=== PATIENT | male | born 1950 | race Caucasian/White ===

== ENCOUNTER 2016-12-11 07:00 | Inpatient (IN) | payer OTHER ==
[~2016-12-11] VITALS: Ht 195.6 cm; Wt 129.8 kg
[~2016-12-11 07:00] MED LIST: ATORVASTATIN CA40 M1 PO; BENAZEPRIL HCL20 MG PO; FLOMAX0.4 M1 PO; LO-DOSE ASPIRIN81 MG PO; VITAMIN B-121000 MC3 PO
[2016-12-15] MEDS ORDERED: TYLENOL EXTRA500 M2 PO (11:47)
--- NOTE | 2016-12-15 11:49 | Patient Discharge Instructions ---
Discharge Instructions General Discharge Information You were seen/treated for: carotid stenosis You had these procedures: carotid endarterectomy Watch for these problems: temp>101, increased redness or drainage of wound, increased weakness or slurring of speech. No bath, but you may shower: Yes Other wound care: Keep incision clean and dry Diet Continue normal diet: Yes Activity Activity Self Limited: Yes Acute Coronary Syndrome Inclusion Criteria At DC or during hospital stay patient has or had the following: Discharge Core Measures Meds if any: Prescribed or Continued at Discharge Meds if any: NOT Prescribed or Continued at Discharge Congestive Heart Failure Inclusion Criteria At DC or during hospital stay patient has or had the following: Discharge Core Measures Meds if any: Prescribed or Continued at Discharge Meds if any: NOT Prescribed or Continued at Discharge Cerebrovascular accident Inclusion Criteria At DC or during hospital stay patient has or had the following: Discharge Core Measures Meds if any: Prescribed or Continued at Discharge Meds if any: NOT Prescribed or Continued at Discharge Venous thromboembolism Discharge Core Measures - Per Current guidelines, there needs to be overlap - treatment for the first 5 days of Warfarin therapy. - If discharged on Warfarin prior to 5 days of - overlap therapy, the patient will need to be - assessed for post discharge needs including - *Post discharge parental anticoagulation - *Warfarin and/or parental anticoagulation education - *Follow up date to check INR post discharge Meds if any: Prescribed or Continued at Discharge Note: Overlap Therapy is Warfarin and Anticoagulant Meds if any: NOT Prescribed or Continued at Discharge
--- NOTE | 2016-12-15 11:54 | Surg Short-stay <48hrs Dis Sum ---
Visit Information Visit Dates Admission Date: 12/15/16 Discharge Date: 12/16/2016 Surgical Short Stay DC Summary Admission Diagnosis: Carotid stenosis Final Diagnosis: same, s/p R CEA Procedure(s): R CEA - see operative report Summary/Significant Findings: Pt underwent a right CEA on 12/15 and was brought to the PACU in stable condition. Overnight he remained stable. He was awake and alert. He was noted to have a very slight weakness on the right side of his face with smiling. His tongue did not deviate. He had no decreased sensation anywhere and other than that he was without any neurologic deficits. His pain was well controlled. He was able to be discharged home. Condition at Discharge: good Discharge Disposition: home or self care Discharge instructions provided to patient/family: Yes Post discharge follow-up plan: One week, call Dr Farrell for an appt
--- NOTE | 2016-12-15 12:02 | Admission Core Measures ---
Admission Meds I reviewed the following Meds: Current Medications Sig/Ortiz Start time Last Medication Dose Stop Time Status Admin Aspirin Buffered 81 MG DAILY 12/15 1141 AC (Ecotrin) Atorvastatin Calcium 40 MG 1700 12/16 1700 AC (Lipitor) Lisinopril 20 MG DAILY 12/16 1000 AC (Prinivil) Tamsulosin HCl 0.4 MG DAILY 12/16 1000 AC (Flomax) Acute Coronary Syndrome Inclusion Criteria ACS Diagnosis No Inpatient Core Measures LDL Reminder: If No, please order W/I first 24hr of stay Congestive Heart Failure Inclusion Criteria CHF Diagnosis No Cerebrovascular accident Inclusion Criteria CVA/TIA Diagnosis No Inpatient Core Measures Bedside Swallow Eval Reminder: If BSE failed, place ST order Antithrombotic Reminder: Order Antithrombotic Medication by end of day 2 Antithrombotic Reminder: Document Reason Antithrombotic Not ordered by end of day 2 AFIB/Flutter Reminder: If Present, add to problem list AFIB/Flutter Reminder: Order Anticoag Medication for pts with AFIB/Flutter Atherosclerosis Reminder: If Present, add to problem list LDL Reminder: If No, please order W/I first 24hr of stay PT Order Reminder: If No, please order Venous thromboembolism Inpatient Core Measures VTE Risk Factors: Age > 40, Surgery No [facility] VTE prophylaxis d/t No contraindications No VTE Pharm Prophylaxis d/t No contraindications Inclusion Criteria - Per Current guidelines, there needs to be overlap - treatment for the first 5 days of Warfarin therapy. - Parenteral Anticoagulation (IV or SC) needs to be - given along with Warfarin therapy. VTE Diagnosis No VTE Type NONE VTE Confirmed by (Test) NONE Problem List As ranked by this Provider includes Assessment & Plan 1. S/P carotid endarterectomy HOME MEDS Home Med List Acetaminophen (Tylenol Extra Strength) 500 MG TABLET 1-2 TAB PO Q6 PRN PAIN Aspirin (Lo-Dose Aspirin EC) 81 MG TABLET.DR 1 TAB PO DAILY BLOOD THINNER ( Reported) Atorvastatin Calcium 40 MG TABLET 1 TAB PO DAILY CHLESTEROL (Reported) Benazepril HCl 20 MG TABLET 1 TAB PO DAILY BLOOD PRESSURE (Reported) Cyanocobalamin (Vitamin B-12) 1,000 MCG TABLET 1 TAB PO DAILY SUPPLEMENT ( Reported) Tamsulosin HCl (Flomax) 0.4 MG CAP.ER.24H 1 TAB PO DAILY URINE FLOW (Reported )
[2016-12-15 12:40] VITALS: BP 118/72
--- NOTE | 2016-12-15 13:56 | PN- Vascular Surgery ---
Subjective Subjective: POST-OP NOTE: Reports expected neck soreness. Tolerating clears. No nausea. No dizziness. No shortness of breath. No chest pains. Voided already without difficulty. Objective Vital Signs and I&Os Vital Signs Date Time Temp Pulse Resp B/P B/P Pulse O2 O2 Flow FiO2 Mean Ox Delivery Rate 12/15 1240 97.2 62 16 118/72 99 Nasal 4.0L Cannula 12/15 1240 99 Nasal 4.0L Cannula Intake & Output 12/15 1600 12/15 0800 12/15 0000 12/14 1600 12/14 0800 12/14 0000 Intake Total Output Total Balance Patient 286 lb Weight Weight Bed scale Measurement Method Physical Exam: General - alert & oriented x 3. comfortable. no acute distress. Face - some dysymmetry noted with smiling. no tongue deviation. otherwise symmetrical. Neck - right neck dressing c/d/i. some swelling but no hematoma appreciated. no drains. Lungs - clear bilaterally. no w/r/r. Cardiac - s1s2. reg. Abdomen - soft. nontender. Extremities - warm bilaterally. no c/c/e. calves soft and nontender b/l. Neuro - no focal deficits. strength grossly equal throughout. Current Medications: Current Medications Sig/Ortiz Start time Last Medication Dose Route Stop Time Status Admin Acetaminophen 650 MG Q6P PRN 12/15 1330 AC PO Aspirin Buffered 81 MG DAILY 12/16 1000 AC PO Aspirin Buffered 81 MG DAILY 12/15 1141 DC PO Atorvastatin Calcium 40 MG 1700 12/16 1700 DC PO Atorvastatin Calcium 40 MG 1700 12/16 1700 AC PO Dextrose/Sodium 1,000 ML .[id number] 12/15 1330 AC Chloride IV Lisinopril 20 MG DAILY 12/16 1000 DC PO Lisinopril 20 MG DAILY 12/16 1000 AC PO Ondansetron HCl 4 MG Q6P PRN 12/15 1330 AC IV Oxycodone/ 1 TAB Q4P PRN 12/15 1330 AC Acetaminophen PO Tamsulosin HCl 0.4 MG DAILY 12/16 1000 DC PO Tamsulosin HCl 0.4 MG DAILY 12/16 1000 AC PO Assessment/Plan Assessment/Plan This 66 year old male with hx htn, hld, bph, is POD#0 s/p right carotid endarterectomy, with mild dysymmetry smiling - 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 No Antibiotics Is Patient on Antibiotics? No
--- NOTE | 2016-12-15 15:58 | Operative Report ---
Operative/Inv Procedure Report Surgery Date: 12/15/16 Name of Procedure: Right carotid thromboendarterectomy with bovine patch angioplasty Pre-Operative Diagnosis: Right carotid high-grade stenosis Post-Operative Diagnosis: Same Estimated Blood Loss: less than 50ml Surgeon/Government Affairs Director: HERIBERTO GARCIA,SEBASTIÁN MARTINEZ MD, MERI (Asst.) Anesthesia: local monitored anesthesi, block Implants: Bovine pericardial patch Complications: None Condition: Stable to PACU Operative Indication: 66-year-old male with a history of asymptomatic high-grade right-sided carotid artery stenosis. Risk benefits and alternatives were explained to the patient including stroke, nerve injury, thrombosis and . He decided to proceed with intervention. Operative/Procedure Note Note: Patient brought to operating room and placed on the table supine. Time out held in accordance with [facility] policy. Of note- due to the patient's size and complexity of the case the second surgeon was required due to the lack of a qualified resident. Incision made over the anterior border of the sternocleidomastoid with a 15 blade. Sharp dissection carried down through the skin and subcutaneous tissue to the level of the carotid sheath. Arteries dissected free proximally and distally. The internal carotid artery, external carotid artery and common carotid artery were all circumferentially controlled. The patient required 40 cc of lidocaine in addition to his cervical block for analgesia. Occluding clamps were then placed and the patient was monitored during this period. No deficits were noted. The artery was then opened and the patient bolused with 6000 units of heparin. An 11 blade was used and a Shi scissors to extend the arteriotomy. A high-grade stenosis was noted 1 cm from the bifurcation. This was excised with a Celina elevator. It was passed off the field as specimen. The intima was then inspected and noted to be cleared after treatment with ring forceps. Heparin saline was used to flush the artery. Two 6-0 tacking sutures were used as well. A bovine pericardial patch was then brought into the field and cut appropriately. It was sutured to the anterior surface of the internal carotid artery and run in a circumferential manner with 6-0 prolene. Once completed all occluding clamps were removed and the artery was eventually flushed. Pulsatile flow was checked with the Doppler into the internal carotid artery was noted to be excellent. The wound was then copiously irrigated. One single interrupted suture was used for hemostasis. Gelfoam thrombin and Surgi-Uriel was used for hemostasis. The wound was then closed in layers with 2-0 Vicryl sutures. Skin tha were used for the cutaneous tissue. Sponge needle and instrument counts were correct. The patient was transported to the recovery room neurologically intact and without complaint.
[2016-12-15 16:00] VITALS: BP 150/82
[2016-12-15 18:00] VITALS: BP 191/82
[2016-12-15 20:00] VITALS: BP 124/78
[2016-12-15 22:00] VITALS: BP 145/71
[2016-12-16] VITALS: BP 146/72
[2016-12-16 04:00] VITALS: BP 170/90
--- NOTE | 2016-12-16 05:54 | PN- Vascular Surgery ---
Subjective Subjective: Awake and alert No complaints overnight Required some narcotics last night but nothing so far this morning Objective Vital Signs and I&Os Vital Signs Date Time Temp Pulse Resp B/P B/P Pulse O2 O2 Flow FiO2 Mean Ox Delivery Rate 12/16 0400 98.3 83 20 170/90 95 Room Air 12/16 0400 96 Room Air 12/16 0000 97 Room Air 12/16 0000 97.8 78 24 146/72 97 Room Air 12/15 2200 82 20 145/71 97 Room Air 12/15 2000 96 Room Air 12/15 2000 99.3 87 18 124/78 96 Room Air 12/15 1800 80 17 191/82 99 Nasal 2.0L Cannula 12/15 1600 100 Nasal 2.0L Cannula 12/15 1600 99.3 76 14 150/82 100 Nasal 2.0L Cannula 12/15 1240 97.2 62 16 118/72 99 Nasal 4.0L Cannula 12/15 1240 99 Nasal 4.0L Cannula Intake & Output 12/16 0800 12/16 0000 12/15 1600 12/15 0800 12/15 0000 12/14 1600 Intake Total 1880 Output Total 1075 Balance 805 Intake, IV 800 Intake, Oral 1080 Output, Urine 1075 Patient 286 lb Weight Weight Bed scale Measurement Method Physical Exam: General - alert and oriented x 3 Face - slight dysymmetry on the right noted with smiling, tongue protrudes in midline, otherwise symmetrical. Neck - dressing clean and dry, mild swelling at incision site but the area is soft, no hematoma appreciated Chest - clear anteriorly bilaterally, RRR Abdomen - soft. nontender. Extremities - warm, no edema, positive sensate, no calf tenderness Neuro - no focal deficits, good strength 5/5 all 4 extremities Assessment/Plan Assessment/Plan 66 yo male pod 1 s/p R CEA Pain management ES tylenol Will order yina if needed at discharge regular diet for breakfast plan to dc home if tolerates Pt has a slight weakness to right face - Dr Farrell aware, mandibular nerve praxia Discussed with patient Follow up plans discussed Core Measures/Miscellaneous Venous Thromboembolism VTE Risk Factors: Age > 40, Surgery VTE Contraindications: No Contraindications VTE Diagnosis: No VTE Type: NONE VTE Confirmed by (Test): NONE Beta Martinez Is Beta Martinez a Home Med? No Antibiotics Is Patient on Antibiotics? No
[2016-12-16 08:00] VITALS: BP 166/82
[2016-12-16] MEDS ORDERED: OXYCODONE HCL5 M1 PO ×2 (08:23→10:27)
[2016-12-16 09:22] VITALS: BP 150/80
[2016-12-16] MEDS ORDERED: TYLENOL EXTRA500 M2 PO (10:27)
== END 2016-12-16 12:18 | DRG 39 ==
LOC: SDA 07:00 → ENRESERV 12-15 11:51 → ENTRNSPT 12-15 12:11 → EDTRNSPTSTS 12-15 12:32 → CMPTRNSPT 12-15 12:57 → CRI 12-15 12:59
PROVIDERS: ADMIT Surgery Vascular Surgery
PROC: 03UK0KZ Supplement Right Internal Carotid Artery with Nonautologous Tissue Substitute, Open Approach (ICD-10-PCS; principal; 2016-12-15)
PROC: 03CK0ZZ Extirpation of Matter from Right Internal Carotid Artery, Open Approach (ICD-10-PCS; principal; 2016-12-15)
PROC: 3E0T3CZ (ICD-10-PCS; 2016-12-15)
DX: I65.21 Occlusion and stenosis of right carotid artery (principal); I10 Essential (primary) hypertension; E78.5 Hyperlipidemia, unspecified; R29.810 Facial weakness; G47.33 Obstructive sleep apnea (adult) (pediatric); I73.9 Peripheral vascular disease, unspecified; I35.0 Nonrheumatic aortic (valve) stenosis; E66.9 Obesity, unspecified; Z68.33 Body mass index [BMI] 33.0-33.9, adult; N40.0 Benign prostatic hyperplasia without lower urinary tract symptoms; Z86.73 Personal history of transient ischemic attack (TIA), and cerebral infarction without residual deficits
CPT/HCPCS: CCU; J0131; J1644; J2405; J3010; J7042